=== PATIENT | female | born 1935 | race Caucasian/White ===

== ENCOUNTER 2017-10-25 12:04 | Day surgery (SDC) | payer BC ==
[2017-10-24 09:12] VITALS: BMI 17.4
[~2017-10-25 12:04] MED LIST: LACTATED RINGERS 1,000 ML IV SCH; LIDOCAINE 1% 20 ML VIAL (10MG/ML) FOR IV START INTRADERMA PRN
[2017-10-25 13:00] VITALS: RESP 18; TEMP 98.6
[2017-10-25] MEDS ORDERED: PROPOFOL 10 MG/ML 20 ML VIAL IV ONE (13:06)
--- NOTE | 2017-10-25 13:37 | P.PCN ---
Date of Procedure: 10/25/17 Procedure(s) Performed: Procedure: Esophagogastroduodenoscopy and biopsy. Preoperative diagnosis: Reflux symptoms and swallowing issues. Postoperative diagnosis: 1. No obvious esophagitis or complicated reflux disease. 2. 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 3. Biopsies obtained from the duodenum, antrum and esophagus. Preparation and sedation: Was provided by anesthesia. Brief clinical history: The patient is an 82-year-old female who is scheduled for this evaluation because of history of reflux and issues with swallowing with regurgitation and bringing up of stomach contents after she eats. She has lost weight unintentionally. No evidence of bleeding or other alarm symptoms. This evaluation is to assess for esophagitis or other pathology. Procedure: With the patient on her left lateral decubitus position and after informed consent and adequate sedation, the Olympus-GIF 160 video upper endoscope was used and was advanced under direct vision through the cricopharyngeus down the esophagus. GE junction was around 39 cm from the incisors. There was no obvious esophagitis or complicated reflux disease. The endoscope was then passed into the stomach which was insufflated with air and inspected in detail including the retroflex view in the cardia. There was some mottling and erythema in the antrum and an antral ulcer and broad fistulas connection to the duodenal bulb in the prepyloric area. Pyloric channel did not show any ulcers. Duodenal bulb, postbulbar area and descending duodenum appeared within normal limits. Because of her symptoms, I obtained biopsies from the duodenum, antrum and esophagus then the endoscope was withdrawn. The patient tolerated the procedure well. Plan: The patient was reassured. Will await biopsy results and make further plans based on her course and biopsy results. In the meantime, she will continue PPI. I will keep you updated on her progress.
[2017-10-25 14:53] VITALS: BP 160/75
[2017-10-25 16:23] VITALS: PULSE 48
== END 2017-10-25 16:48 | disposition home or self-care (01) ==
LOC: ORWHC2ENDO 12:04
DX: K25.9 Gastric ulcer, unspecified as acute or chronic, without hemorrhage or perforation (principal); K29.50 Unspecified chronic gastritis without bleeding; K21.9 Gastro-esophageal reflux disease without esophagitis; I95.9 Hypotension, unspecified; F03.90 Unspecified dementia, unspecified severity, without behavioral disturbance, psychotic disturbance, mood disturbance, and anxiety; Z79.899 Other long term (current) drug therapy
CPT/HCPCS: 88305; 43239; J2704; 88342